=== PATIENT | male | born 1990 | race Two or more races ===

== ENCOUNTER 2020-03-01 17:40 | Inpatient (IN) | payer MEDICARE ==
[~2020-03-01] VITALS: Ht 162.6 cm; Wt 52.6 kg
[2020-03-01 21:00] VITALS: BP 119/84
[2020-03-01] MEDS ORDERED: POLYETHYLENE GLYCOL 17 GM PACKET PO PRN (22:00)
[2020-03-01] MEDS ORDERED: BISACODYL 10 MG SUPP PR PRN (22:00)
[2020-03-01] MEDS ORDERED: DOCUSATE 100 MG CAPSULE PO PRN (22:00)
[2020-03-01] MEDS ORDERED: ONDANSETRON ODT 4 MG PO PRN (22:00)
[2020-03-01] MEDS ORDERED: PLEASE ENTER ALLERGIES MC SCH (22:30)
[2020-03-02] MEDS ORDERED: ACET-2065 PO (02:40)
[2020-03-02] MEDS ORDERED: APIX5TAB PO (02:42)
[2020-03-02] MEDS ORDERED: OLAN5TAB7 PO (02:47)
[2020-03-02] MEDS ORDERED: OLAN10TA9 PO (02:47)
[2020-03-02] MEDS ORDERED: TRAZ50TA66 PO (02:47)
[2020-03-02] MEDS ORDERED: TAMS-11 PO (02:47)
[2020-03-02 06:34] LABS: CHOL/HDL RATIO 4.9; CHOLESTEROL, TOTAL 176 mg/dL (140-239); CREATININE 0.64 mg/dL (0.7-1.3); HDL CHOL % 20 % (26-37); HDL CHOLESTEROL (DIRECT) 36 mg/dL (40-60); LDL CHOLESTEROL,CALCULATED 107 mg/dL (54-169); TRIGLYCERIDES 163 mg/dL (50-200); VLDL CHOLESTEROL 33 mg/dL (0-25)
[2020-03-02 07:10] VITALS: BP 104/69
[2020-03-02] MEDS: APIXABAN 5 MG TABLET PO SCH ×2 (08:23→20:34)
[2020-03-02] MEDS: OLANZAPINE ODT 10MG PO SCH ×2 (08:24→20:34)
[2020-03-02] MEDS: TAMSULOSIN 0.4 MG CAP.ER.24H PO SCH (08:24)
--- NOTE | 2020-03-02 10:02 | NUR ---
REC: USP with supervision Addendum: 03/02/20 at 1003 by Michaelle PURCELL Amended: Links added.
[2020-03-02 19:56] VITALS: BP 102/73
[2020-03-03 00:34] LABS: MICROSCOPIC INDICATED
[2020-03-03 07:06] VITALS: BP 110/75
[2020-03-03] MEDS: OLANZAPINE ODT 10MG PO SCH ×2 (09:02→19:40)
[2020-03-03] MEDS: TAMSULOSIN 0.4 MG CAP.ER.24H PO SCH (09:02)
[2020-03-03] MEDS: APIXABAN 5 MG TABLET PO SCH ×2 (09:02→19:40)
[2020-03-03] MEDS: SIMETHICONE 125 MG CHEW TAB PO SCH ×3 (12:29→20:55)
[2020-03-03] MEDS: TRAZODONE 50MG TABLET PO PRN (19:40)
[2020-03-03 19:41] VITALS: BP 114/76
[2020-03-04 07:05] LABS: BASOPHILS # (AUTO) 0.03 x10^3/uL (0-0.1); BASOPHILS % (AUTO) 1 % (0-1); EOSINOPHILS # (AUTO) 0.15 x10^3/uL (0-0.4); EOSINOPHILS % (AUTO) 3 % (1-7); LYMPHOCYTES # (AUTO) 2.35 x10^3/uL (1-3.4); LYMPHOCYTES % (AUTO) 40 % (22-44); MD NO; MEAN CORPUSCULAR HGB CONC 33.4 g/dL (33.2-36.2); MEAN CORPUSCULAR VOLUME 89.9 fL (81-97); MEAN PLATELET VOLUME 7.2 fL (7.4-10.4); MONOCYTES # (AUTO) 0.37 x10^3/uL (0.2-0.8); MONOCYTES % (AUTO) 6 % (2-9); NEUTROPHILS # (AUTO) 2.97 x10^3/uL (1.8-6.8); NEUTROPHILS % (AUTO) 51 % (42-75); PLATELET COUNT 293 x10^3/uL (130-400); RED BLOOD COUNT 4.67 x10^6/uL (4.38-5.82); RED CELL DISTRIBUTION WIDTH 13.2 % (9.4-14.8)
[2020-03-04 07:06] VITALS: BP 106/70
[2020-03-04 07:13] LABS: ALBUMIN 3.4 g/dL (3.4-5.0); ANION GAP 6 mmol/L (5-15); CALCIUM 9.2 mg/dL (8.5-10.1); CHLORIDE 108 mmol/L (98-107)
[2020-03-04 07:17] LABS: ALANINE AMINOTRANSFERASE 32 U/L (12-78); ALKALINE PHOSPHATASE 60 U/L (45-117); BILIRUBIN,TOTAL 0.5 mg/dL (0.2-1.0); CREATININE 0.62 mg/dL (0.7-1.3); TOTAL PROTEIN 6.9 g/dL (6.4-8.2)
[2020-03-04] MEDS: APIXABAN 5 MG TABLET PO SCH ×2 (08:01→21:00)
[2020-03-04] MEDS: SIMETHICONE 125 MG CHEW TAB PO SCH ×4 (08:01→20:03)
[2020-03-04] MEDS: OLANZAPINE ODT 10MG PO SCH ×2 (08:02→21:00)
[2020-03-04] MEDS: TAMSULOSIN 0.4 MG CAP.ER.24H PO SCH (08:02)
[2020-03-04 19:36] VITALS: BP 101/69
[2020-03-05 07:26] VITALS: BP 126/81
[2020-03-05 08:18] LABS: BASOPHILS # (AUTO) 0.02 x10^3/uL (0-0.1); BASOPHILS % (AUTO) 0 % (0-1); EOSINOPHILS # (AUTO) 0.12 x10^3/uL (0-0.4); EOSINOPHILS % (AUTO) 2 % (1-7); LYMPHOCYTES # (AUTO) 2.25 x10^3/uL (1-3.4); LYMPHOCYTES % (AUTO) 41 % (22-44); MD NO; MEAN CORPUSCULAR HGB CONC 33.5 g/dL (33.2-36.2); MEAN CORPUSCULAR VOLUME 89.8 fL (81-97); MEAN PLATELET VOLUME 7.6 fL (7.4-10.4); MONOCYTES % (AUTO) 7 % (2-9); NEUTROPHILS # (AUTO) 2.75 x10^3/uL (1.8-6.8); NEUTROPHILS % (AUTO) 50 % (42-75); PLATELET COUNT 282 x10^3/uL (130-400); RED BLOOD COUNT 4.53 x10^6/uL (4.38-5.82); RED CELL DISTRIBUTION WIDTH 13.4 % (9.4-14.8)
[2020-03-05] MEDS: SIMETHICONE 125 MG CHEW TAB PO SCH ×5 (08:56→21:26)
[2020-03-05] MEDS: APIXABAN 5 MG TABLET PO SCH ×2 (08:56→20:22)
[2020-03-05] MEDS: TAMSULOSIN 0.4 MG CAP.ER.24H PO SCH (08:56)
[2020-03-05] MEDS: OLANZAPINE ODT 10MG PO SCH ×2 (08:57→21:26)
[2020-03-05 20:56] VITALS: BP 117/85
[2020-03-05] MEDS: ACETAMINOPHEN 325 MG TABLET PO PRN (22:38)
[2020-03-05] MEDS: DIAZEPAM 10 MG TABLET PO PRN (23:30)
[2020-03-06] MEDS: SIMETHICONE 125 MG CHEW TAB PO SCH ×4 (07:00→20:27)
[2020-03-06 07:16] VITALS: BP 97/63
[2020-03-06] MEDS: OLANZAPINE ODT 10MG PO SCH (08:30)
[2020-03-06] MEDS: TAMSULOSIN 0.4 MG CAP.ER.24H PO SCH (08:30)
[2020-03-06] MEDS: APIXABAN 5 MG TABLET PO SCH ×2 (08:31→20:27)
[2020-03-06 10:49] VITALS: BP 113/80
[2020-03-06] MEDS ORDERED: OLANZAPINE 10 MG INJ IM ONE (11:00)
[2020-03-06] MEDS: DIAZEPAM 10 MG TABLET PO PRN (12:20)
[2020-03-06] MEDS ORDERED: LABETALOL 5MG/ML, 20ML IV PRN (12:30)
[2020-03-06] MEDS ORDERED: HYDROmorphone 1 MG/ML, 1ML INJ IVPush PRN (12:30)
[2020-03-06] MEDS ORDERED: PROMETHAZINE 25 MG/ML, 1ML IVPush PRN (12:30)
[2020-03-06] MEDS ORDERED: hydrALAzine 20 MG/ML, 1ML IV PRN (12:30)
[2020-03-06] MEDS ORDERED: EPHEDRINE 50 MG/ML, 1ML IVPush PRN (12:30)
[2020-03-06] MEDS ORDERED: FENTANYL PF 100 MCG/2ML IV PRN (12:30)
[2020-03-06] MEDS ORDERED: ACETAMINOPHEN 325 MG TABLET PO PRN (12:30)
[2020-03-06] MEDS ORDERED: ONDANSETRON 2MG/ML, 2ML IVPush PRN (12:30)
[2020-03-06] MEDS ORDERED: OXYcodone 5 MG/5 ML ORAL.SOL UDC PO PRN (12:30)
[2020-03-06] MEDS ORDERED: CHLORHEXIDINE 15 ML UDC ONE (13:59)
[2020-03-06] MEDS ORDERED: FENTANYL PF 100 MCG/2ML ONE (14:41)
[2020-03-06] MEDS ORDERED: DEXAMETHASONE 4 MG/ML, 1ML ONE (15:07)
[2020-03-06] MEDS ORDERED: CEFAZOLIN 1,000 MG ONE (15:07)
[2020-03-06] MEDS ORDERED: PROPOFOL 10 MG/ML, 20ML ONE (15:07)
[2020-03-06] MEDS ORDERED: ONDANSETRON 2MG/ML, 2ML ONE (15:07)
[2020-03-06] MEDS ORDERED: LIDOCAINE-MPF 2% ,5ML ONE (15:07)
[2020-03-06] MEDS ORDERED: SUCCINYLCHOLINE 20 MG/ML, 10ML ONE (15:07)
[2020-03-06 16:35] VITALS: BP 124/79
[2020-03-06] MEDS: PALIPERIDONE 6 MG TAB.ER.24 PO SCH (17:50)
[2020-03-06 19:55] VITALS: BP 109/73
[2020-03-06] MEDS: TRAZODONE 50MG TABLET PO PRN (20:27)
[2020-03-07] MEDS: SIMETHICONE 125 MG CHEW TAB PO SCH ×5 (07:00→20:16)
[2020-03-07 07:19] VITALS: BP 103/61
[2020-03-07] MEDS: TAMSULOSIN 0.4 MG CAP.ER.24H PO SCH (08:24)
[2020-03-07] MEDS: PALIPERIDONE 6 MG TAB.ER.24 PO SCH (08:24)
[2020-03-07] MEDS: APIXABAN 5 MG TABLET PO SCH ×2 (08:24→20:16)
[2020-03-07 19:00] VITALS: BP 100/66
[2020-03-07] MEDS: TRAZODONE 50MG TABLET PO PRN (20:16)
[2020-03-07] MEDS: DIAZEPAM 10 MG TABLET PO PRN (20:16)
[2020-03-08] MEDS: SIMETHICONE 125 MG CHEW TAB PO SCH ×4 (05:44→20:12)
[2020-03-08 05:50] LABS: CREATININE 0.61 mg/dL (0.7-1.3)
[2020-03-08 07:06] VITALS: BP 110/68
[2020-03-08] MEDS: APIXABAN 5 MG TABLET PO SCH ×2 (08:42→20:12)
[2020-03-08] MEDS: TAMSULOSIN 0.4 MG CAP.ER.24H PO SCH (08:42)
[2020-03-08] MEDS: PALIPERIDONE 6 MG TAB.ER.24 PO SCH (08:42)
[2020-03-08 19:44] VITALS: BP 111/77
[2020-03-08] MEDS: TRAZODONE 50MG TABLET PO PRN (20:12)
[2020-03-09 07:35] VITALS: BP 107/66
[2020-03-09] MEDS: SIMETHICONE 125 MG CHEW TAB PO SCH ×4 (08:24→20:27)
[2020-03-09] MEDS: PALIPERIDONE 6 MG TAB.ER.24 PO SCH (08:24)
[2020-03-09] MEDS: APIXABAN 5 MG TABLET PO SCH ×2 (08:24→20:27)
[2020-03-09] MEDS: TAMSULOSIN 0.4 MG CAP.ER.24H PO SCH (08:25)
[2020-03-09 19:40] VITALS: BP 115/83
[2020-03-09] MEDS: TRAZODONE 50MG TABLET PO PRN (20:27)
[2020-03-10] MEDS: SIMETHICONE 125 MG CHEW TAB PO SCH ×4 (06:12→20:18)
[2020-03-10 07:17] VITALS: BP 107/70
[2020-03-10] MEDS: APIXABAN 5 MG TABLET PO SCH ×2 (08:16→20:18)
[2020-03-10] MEDS: TAMSULOSIN 0.4 MG CAP.ER.24H PO SCH (08:16)
[2020-03-10] MEDS: PALIPERIDONE 6 MG TAB.ER.24 PO SCH (08:16)
[2020-03-10 19:24] VITALS: BP 103/70
[2020-03-10] MEDS: TRAZODONE 50MG TABLET PO PRN (20:18)
[2020-03-11] MEDS: SIMETHICONE 125 MG CHEW TAB PO SCH ×4 (06:14→20:34)
[2020-03-11 07:06] VITALS: BP 113/75
[2020-03-11] MEDS: APIXABAN 5 MG TABLET PO SCH ×2 (09:05→20:34)
[2020-03-11] MEDS: TAMSULOSIN 0.4 MG CAP.ER.24H PO SCH (09:05)
[2020-03-11] MEDS: PALIPERIDONE 6 MG TAB.ER.24 PO SCH (09:05)
[2020-03-11 19:30] VITALS: BP 131/96
[2020-03-11] MEDS: TRAZODONE 50MG TABLET PO PRN (20:33)
[2020-03-12] MEDS: SIMETHICONE 125 MG CHEW TAB PO SCH ×4 (07:27→20:34)
[2020-03-12 07:58] VITALS: BP 112/67
[2020-03-12] MEDS: APIXABAN 5 MG TABLET PO SCH ×2 (08:33→20:34)
[2020-03-12] MEDS: TAMSULOSIN 0.4 MG CAP.ER.24H PO SCH (08:33)
[2020-03-12] MEDS: PALIPERIDONE 6 MG TAB.ER.24 PO SCH (08:33)
[2020-03-12 19:50] VITALS: BP 116/79
[2020-03-12] MEDS: TRAZODONE 50MG TABLET PO PRN (20:34)
[2020-03-13] MEDS: SIMETHICONE 125 MG CHEW TAB PO SCH ×4 (07:00→21:13)
[2020-03-13 07:01] VITALS: BP 118/76
[2020-03-13] MEDS: TAMSULOSIN 0.4 MG CAP.ER.24H PO SCH (08:24)
[2020-03-13] MEDS: APIXABAN 5 MG TABLET PO SCH ×2 (08:24→21:13)
[2020-03-13] MEDS: PALIPERIDONE 6 MG TAB.ER.24 PO SCH (08:24)
[2020-03-13 19:54] VITALS: BP 123/82
[2020-03-13] MEDS: TRAZODONE 50MG TABLET PO PRN (21:13)
[2020-03-14 04:59] LABS: MICROSCOPIC AUTO
[2020-03-14 07:00] VITALS: BP 113/71
[2020-03-14] MEDS: PALIPERIDONE 6 MG TAB.ER.24 PO SCH (08:55)
[2020-03-14] MEDS: APIXABAN 5 MG TABLET PO SCH ×2 (08:55→20:22)
[2020-03-14] MEDS: TAMSULOSIN 0.4 MG CAP.ER.24H PO SCH (08:55)
[2020-03-14] MEDS: SIMETHICONE 125 MG CHEW TAB PO SCH ×4 (08:55→20:22)
[2020-03-14] MEDS ORDERED: PALIPERIDONE PALMITATE 234 MG/1.5 ML IM SCH (18:00)
[2020-03-14 19:54] VITALS: BP 96/69
[2020-03-14] MEDS: TRAZODONE 50MG TABLET PO PRN (20:22)
[2020-03-14 21:20] VITALS: BP 125/86
[2020-03-15] MEDS: ACETAMINOPHEN 325 MG TABLET PO PRN (06:08)
[2020-03-15] MEDS: SIMETHICONE 125 MG CHEW TAB PO SCH ×5 (07:00→20:54)
[2020-03-15 07:40] VITALS: BP 108/77
[2020-03-15] MEDS: APIXABAN 5 MG TABLET PO SCH ×2 (07:43→20:54)
[2020-03-15] MEDS: PALIPERIDONE 6 MG TAB.ER.24 PO SCH (07:43)
[2020-03-15] MEDS: TAMSULOSIN 0.4 MG CAP.ER.24H PO SCH (07:43)
[2020-03-15 19:45] VITALS: BP 123/86
[2020-03-16 06:36] LABS: CREATININE 0.62 mg/dL (0.7-1.3)
[2020-03-16] MEDS: SIMETHICONE 125 MG CHEW TAB PO SCH ×4 (07:00→19:53)
[2020-03-16 07:25] VITALS: BP 126/84
[2020-03-16] MEDS: APIXABAN 5 MG TABLET PO SCH ×2 (08:08→19:51)
[2020-03-16] MEDS: TAMSULOSIN 0.4 MG CAP.ER.24H PO SCH (08:08)
[2020-03-16] MEDS: PALIPERIDONE 6 MG TAB.ER.24 PO SCH (08:09)
[2020-03-16] MEDS: ACETAMINOPHEN 325 MG TABLET PO PRN (19:51)
[2020-03-16] MEDS: DIAZEPAM 10 MG TABLET PO PRN (19:51)
[2020-03-16 19:54] VITALS: BP 117/86
[2020-03-17] MEDS: TRAZODONE 50MG TABLET PO PRN ×2 (00:41→21:10)
[2020-03-17] MEDS: DIAZEPAM 10 MG TABLET PO PRN ×2 (00:44→21:10)
[2020-03-17] MEDS: SIMETHICONE 125 MG CHEW TAB PO SCH ×4 (07:00→21:10)
[2020-03-17] MEDS: APIXABAN 5 MG TABLET PO SCH ×3 (08:50→21:10)
[2020-03-17] MEDS: TAMSULOSIN 0.4 MG CAP.ER.24H PO SCH (09:47)
[2020-03-17] MEDS: PALIPERIDONE 6 MG TAB.ER.24 PO SCH (09:52)
[2020-03-17] MEDS: CARBAMAZEPINE 200 MG TABLET PO SCH ×2 (12:00→21:10)
[2020-03-17 19:42] VITALS: BP 121/70
[2020-03-17] MEDS ORDERED: LORazepam 2 MG/ML, 1ML ONE (20:43)
[2020-03-17] MEDS ORDERED: LORazepam 2 MG/ML, 1ML IM ONE (21:30)
[2020-03-18] MEDS: SIMETHICONE 125 MG CHEW TAB PO SCH ×4 (07:40→21:00)
[2020-03-18] MEDS: PALIPERIDONE 6 MG TAB.ER.24 PO SCH (09:00)
[2020-03-18] MEDS: CARBAMAZEPINE 200 MG TABLET PO SCH ×2 (09:00→21:00)
[2020-03-18] MEDS: APIXABAN 5 MG TABLET PO SCH ×2 (09:40→21:00)
[2020-03-18] MEDS: TAMSULOSIN 0.4 MG CAP.ER.24H PO SCH (09:40)
[2020-03-18] MEDS: DIAZEPAM 10 MG TABLET PO PRN (21:58)
[2020-03-19] MEDS: SIMETHICONE 125 MG CHEW TAB PO SCH ×4 (07:00→20:59)
[2020-03-19 07:33] LABS: CREATININE 0.62 mg/dL (0.7-1.3)
[2020-03-19] MEDS: TAMSULOSIN 0.4 MG CAP.ER.24H PO SCH (08:42)
[2020-03-19] MEDS: CARBAMAZEPINE 200 MG TABLET PO SCH ×2 (08:42→20:59)
[2020-03-19] MEDS: PALIPERIDONE 6 MG TAB.ER.24 PO SCH (08:42)
[2020-03-19] MEDS: APIXABAN 5 MG TABLET PO SCH ×2 (08:42→20:59)
[2020-03-19 19:58] VITALS: BP 111/76
[2020-03-21] MEDS ORDERED: MELA5TAB14 PO (12:35)
[2020-03-21] MEDS ORDERED: TRAZ50TA66 PO (12:35)
[2020-03-21] MEDS ORDERED: OLAN5TAB9 PO (12:35)
[2020-03-21] MEDS ORDERED: TAMS-11 PO (12:35)
[2020-03-21] MEDS ORDERED: OLAN10TA9 PO (12:35)
[2020-03-21] MEDS ORDERED: APIX5TAB PO (12:35)
== END 2020-03-19 21:47 | disposition home or self-care (01) | DRG 885 ==
LOC: 3E 20:40
PROVIDERS: ADMIT Psychiatry & Neurology Psychosomatic Medicine; ATTEND Psychiatry & Neurology Psychosomatic Medicine
PROC: 0T9B70Z Drainage of Bladder with Drainage Device, Via Natural or Artificial Opening (ICD-10-PCS; 2020-03-02)
PROC: 0TCB8ZZ Extirpation of Matter from Bladder, Via Natural or Artificial Opening Endoscopic (ICD-10-PCS; principal; 2020-03-06 14:30)
DX: F25.0 Schizoaffective disorder, bipolar type (principal); F11.20 Opioid dependence, uncomplicated; F15.20 Other stimulant dependence, uncomplicated; I82.502 Chronic embolism and thrombosis of unspecified deep veins of left lower extremity; N21.0 Calculus in bladder; R33.9 Retention of urine, unspecified; Z79.01 Long term (current) use of anticoagulants; Z79.899 Other long term (current) drug therapy; Z86.718 Personal history of other venous thrombosis and embolism; Z91.19 Patient's noncompliance with other medical treatment and regimen; Z03.818 Encounter for observation for suspected exposure to other biological agents ruled out
CPT/HCPCS: 36415; 80053; 80061; 81001; 82360; 82565; 82607; 84443; 85025; 87077; 87086; 87186; 87635; 88300; J0690; J1100; J2405; J2704; J3010; 92523-GN; J0330; J2060; J2426

== ENCOUNTER 2020-03-21 12:54 | Inpatient (IN) | payer MEDICARE ==
[~2020-03-21] VITALS: Ht 162.6 cm; Wt 57.6 kg
[~2020-03-21 12:54] MED LIST: ACET-2065 PO; APIX5TAB PO; MELA5TAB14 PO; OLAN10TA9 PO; OLAN5TAB7 PO; OLAN5TAB9 PO; TAMS-11 PO; TRAZ50TA66 PO
[2020-03-21] MEDS ORDERED: POLYETHYLENE GLYCOL 17 GM PACKET PO PRN (13:30)
[2020-03-21] MEDS ORDERED: ONDANSETRON ODT 4 MG PO PRN (13:30)
[2020-03-21] MEDS ORDERED: ACETAMINOPHEN 325 MG TABLET PO PRN (13:30)
[2020-03-21] MEDS ORDERED: DOCUSATE 100 MG CAPSULE PO PRN (13:30)
[2020-03-21] MEDS ORDERED: BISACODYL 10 MG SUPP PR PRN (13:30)
[2020-03-21] MEDS ORDERED: TRAZODONE 50MG TABLET PO PRN (14:30)
[2020-03-21] MEDS ORDERED: PLEASE ENTER HEIGHT AND WEIGHT MC SCH (15:30)
[2020-03-21 16:21] VITALS: BP 122/66
[2020-03-21] MEDS: NICOTINE 14MG/24 HR PATCH.TD24 TD SCH (19:00)
[2020-03-21] MEDS ORDERED: APIXABAN 5 MG TABLET PO SCH (21:00)
[2020-03-21] MEDS: APIXABAN 5 MG TABLET PO SCH (21:00)
[2020-03-21] MEDS: OLANZAPINE 10 MG TABLET PO SCH (21:00)
[2020-03-21 23:14] LABS: MICROSCOPIC AUTO
[2020-03-22] MEDS ORDERED: LORazepam 2 MG/ML, 1ML ONE (03:20)
[2020-03-22] MEDS ORDERED: LORazepam 2 MG/ML, 1ML IM ONE (03:30)
[2020-03-22] MEDS: OLANZAPINE ODT 10MG PO SCH (09:00)
[2020-03-22] MEDS: APIXABAN 5 MG TABLET PO SCH ×2 (09:16→20:55)
[2020-03-22] MEDS: TAMSULOSIN 0.4 MG CAP.ER.24H PO SCH (09:16)
[2020-03-22] MEDS: NICOTINE 14MG/24 HR PATCH.TD24 TD SCH (19:00)
[2020-03-22] MEDS: OLANZAPINE 10 MG TABLET PO SCH (20:56)
[2020-03-23] MEDS: OLANZAPINE ODT 10MG PO SCH (09:00)
[2020-03-23] MEDS: TAMSULOSIN 0.4 MG CAP.ER.24H PO SCH (09:04)
[2020-03-23] MEDS: APIXABAN 5 MG TABLET PO SCH ×2 (09:04→21:00)
[2020-03-23] MEDS: OLANZAPINE 10 MG TABLET PO SCH (21:00)
[2020-03-23] MEDS: NICOTINE 14MG/24 HR PATCH.TD24 TD SCH (21:00)
[2020-03-24 07:22] VITALS: BP 121/83
[2020-03-24] MEDS: TAMSULOSIN 0.4 MG CAP.ER.24H PO SCH (09:00)
[2020-03-24] MEDS: APIXABAN 5 MG TABLET PO SCH ×2 (09:57→21:00)
[2020-03-24] MEDS: OLANZAPINE ODT 10MG PO SCH (09:57)
[2020-03-24 19:36] VITALS: BP 117/82
[2020-03-24] MEDS: NICOTINE 14MG/24 HR PATCH.TD24 TD SCH (20:00)
[2020-03-24] MEDS: OLANZAPINE 10 MG TABLET PO SCH (21:00)
[2020-03-25] MEDS: APIXABAN 5 MG TABLET PO SCH ×2 (08:16→19:51)
[2020-03-25] MEDS: OLANZAPINE ODT 10MG PO SCH (08:17)
[2020-03-25] MEDS: TAMSULOSIN 0.4 MG CAP.ER.24H PO SCH (08:17)
[2020-03-25] MEDS: NICOTINE 14MG/24 HR PATCH.TD24 TD SCH (19:00)
[2020-03-25] MEDS: OLANZAPINE 10 MG TABLET PO SCH (19:51)
[2020-03-26 07:00] VITALS: BP 123/100
[2020-03-26] MEDS: APIXABAN 5 MG TABLET PO SCH ×2 (08:35→21:00)
[2020-03-26] MEDS: TAMSULOSIN 0.4 MG CAP.ER.24H PO SCH (08:35)
[2020-03-26] MEDS: OLANZAPINE ODT 10MG PO SCH (08:35)
[2020-03-26 19:00] VITALS: BP 114/81
[2020-03-26] MEDS: NICOTINE 14MG/24 HR PATCH.TD24 TD SCH (19:00)
[2020-03-26] MEDS: OLANZAPINE 10 MG TABLET PO SCH (21:00)
[2020-03-27] MEDS: APIXABAN 5 MG TABLET PO SCH ×2 (08:09→20:22)
[2020-03-27] MEDS: OLANZAPINE ODT 10MG PO SCH (08:09)
[2020-03-27] MEDS: TAMSULOSIN 0.4 MG CAP.ER.24H PO SCH (08:09)
[2020-03-27] MEDS ORDERED: OLAN10TA9 PO (11:37)
[2020-03-27] MEDS ORDERED: NICO-486 TD (11:37)
[2020-03-27] MEDS ORDERED: APIX5TAB PO (11:37)
[2020-03-27] MEDS ORDERED: TAMS-11 PO (11:37)
[2020-03-27] MEDS ORDERED: OLAN10TA7 PO (11:37)
[2020-03-27] MEDS ORDERED: TRAZ50TA66 PO (11:37)
[2020-03-27] MEDS ORDERED: PALI156D IM (11:41)
[2020-03-27 19:53] VITALS: BP 100/64
[2020-03-27] MEDS: OLANZAPINE 10 MG TABLET PO SCH (20:22)
[2020-03-27] MEDS: NICOTINE 14MG/24 HR PATCH.TD24 TD SCH (20:23)
== END 2020-03-27 20:35 | disposition home or self-care (01) | DRG 885 ==
LOC: 3E 15:02
PROVIDERS: ADMIT Psychiatry & Neurology Psychosomatic Medicine; ATTEND Psychiatry & Neurology Psychosomatic Medicine
DX: F25.0 Schizoaffective disorder, bipolar type (principal); Z79.899 Other long term (current) drug therapy; Z86.718 Personal history of other venous thrombosis and embolism; Z91.14 Patient's other noncompliance with medication regimen; Z72.89 Other problems related to lifestyle
CPT/HCPCS: 81001; 87086; J2060

== ENCOUNTER 2020-03-28 01:51 | Emergency (ER) | payer MEDICARE ==
[~2020-03-28] VITALS: Ht 162.6 cm; Wt 68.0 kg
[~2020-03-28 01:51] MED LIST changes: +NICO-486 TD; +OLAN10TA7 PO; +PALI156D IM
[2020-03-28 01:58] VITALS: BP 129/80
[2020-03-28] MEDS ORDERED: LORazepam 2 MG/ML, 1ML IM ONE (02:30)
[2020-03-28] MEDS ORDERED: LORazepam 2 MG/ML, 1ML ONE (03:00)
== END 2020-03-28 03:20 | disposition home or self-care (01) ==
LOC: ED 03:10
DX: F41.1 Generalized anxiety disorder (principal); G47.00 Insomnia, unspecified; F17.210 Nicotine dependence, cigarettes, uncomplicated; Z86.718 Personal history of other venous thrombosis and embolism; F31.9 Bipolar disorder, unspecified; F20.9 Schizophrenia, unspecified
CPT/HCPCS: 96372; 99283; 99406; J2060

== ENCOUNTER 2020-04-21 16:53 | Emergency (ER) | payer MEDICARE, MEDICAID ==
[~2020-04-21] VITALS: Ht 157.5 cm; Wt 57.8 kg
--- NOTE | 2020-04-21 17:33 | NUR ---
C/O CLOGGED CABRERA CATH SINCE THIS AM, PT REPORTS CATH WAS PLACED 3 WEEKS AGO. PLACED ON VITALS MONITORS, CALL LIGHT WITHIN REACH.
--- NOTE | 2020-04-21 18:09 | NUR ---
ATTEMPTED TO FLUSH CABRERA CATH, UNABLE TO FLUSH AT THIS TIME. NOTED DISCHARGE FROM [facility].
--- NOTE | 2020-04-21 18:35 | NUR ---
CABRERA REMOVED PER ERMD.
--- NOTE | 2020-04-21 18:57 | NUR ---
URINE SAMPLE COLLECTED.
[2020-04-21 19:07] LABS: MICROSCOPIC AUTO
[2020-04-21 19:32] LABS: BASOPHILS % (AUTO) 1 % (0-1); EOSINOPHILS % (AUTO) 1 % (1-7); LYMPHOCYTES % (AUTO) 27 % (22-44); MEAN CORPUSCULAR HEMOGLOBIN 29.3 pg (27.5-34.5); MEAN CORPUSCULAR HGB CONC 33.7 g/dL (33.2-36.2); MEAN PLATELET VOLUME 6.8 fL (7.4-10.4); MONOCYTES % (AUTO) 4 % (2-9); NEUTROPHILS % (AUTO) 68 % (42-75); PLATELET COUNT 276 x10^3/uL (130-400); RED CELL DISTRIBUTION WIDTH 13.2 % (9.4-14.8)
[2020-04-21 19:33] LABS: AMPHETAMINE SCREEN, URINE Negative (Negative); BARBITURATE SCREEN, URINE Negative (Negative); BENZODIAZEPINE SCREEN, URINE Negative (Negative); CANNABINOID SCREEN, URINE Negative (Negative); COCAINE SCREEN, URINE Negative (Negative); METHADONE SCREEN, URINE Negative (Negative); OPIATE SCREEN, URINE Negative (Negative)
[2020-04-21 19:37] LABS: MD NO
[2020-04-21 19:44] LABS: ALANINE AMINOTRANSFERASE 43 U/L (12-78); ANION GAP 5 mmol/L (5-15); CALCIUM 9.2 mg/dL (8.5-10.1); CHLORIDE 104 mmol/L (98-107); CREATININE 0.81 mg/dL (0.7-1.3)
[2020-04-21 19:47] LABS: ALKALINE PHOSPHATASE 89 U/L (45-117); BILIRUBIN,TOTAL 0.3 mg/dL (0.2-1.0); TOTAL PROTEIN 8.3 g/dL (6.4-8.2)
[2020-04-21] MEDS ORDERED: CEFDINIR 300 MG CAPSULE ONE (20:47)
[2020-04-21 20:55] VITALS: BP 132/92
[2020-04-21] MEDS ORDERED: CEFDINIR 300 MG CAPSULE PO ONE (21:00)
== END 2020-04-21 20:57 | disposition home or self-care (01) ==
LOC: ED 17:16
DX: N30.01 Acute cystitis with hematuria (principal); F41.1 Generalized anxiety disorder; Z86.718 Personal history of other venous thrombosis and embolism; R00.0 Tachycardia, unspecified
CPT/HCPCS: 36415; 80053; 80307; 81001; 83605; 84145; 85025; 87040; 87077; 87086; 87186; 99283